=== PATIENT | male | born 1970 | race Caucasian/White ===

== ENCOUNTER 2023-12-23 06:02 | Day surgery (SDC) | payer MEDICAID ==
[2023-12-23] MEDS ORDERED: Bupivacaine HCl 0.5%/Epinephrine 1:200,000/PF 30 ml Vial ONE (06:59)
[2023-12-23] MEDS ORDERED: Lidocaine 2% PF 5 ML VIAL ONE (07:02)
[2023-12-23] MEDS ORDERED: Dexamethasone 4 mg/ml Vial ONE (07:02)
[2023-12-23] MEDS ORDERED: PROPOFOL 20 ML ONE (07:02)
[2023-12-23] MEDS ORDERED: Ondansetron PF 4 MG/2 ML Vial ONE (07:02)
[2023-12-23] MEDS ORDERED: CEFAZOLIN 2 GM VIAL ONE (07:18)
[2023-12-23] MEDS ORDERED: Midazolam HCl 2 mg/2 ml Vial ONE (07:22)
[2023-12-23] MEDS ORDERED: fentaNYL 50 mcg/mL 1 mL Vial ONE ×4 (07:23→08:02)
[2023-12-23] MEDS ORDERED: Scopolamine 1 mg/72 hour Patch ONE (07:23)
[2023-12-23] MEDS ORDERED: Dexamethasone 20 MG/5 ML VIAL ONE (07:47)
== END 2023-12-23 09:30 | disposition home or self-care (01) ==
LOC: CSHSDC 06:02
PROVIDERS: ATTEND Surgery
PROC: 0JH63WZ Insertion of Totally Implantable Vascular Access Device into Chest Subcutaneous Tissue and Fascia, Percutaneous Approach (ICD-10-PCS; principal; 2023-12-23)
DX: C25.9 Malignant neoplasm of pancreas, unspecified (principal); M10.9 Gout, unspecified; F41.9 Anxiety disorder, unspecified; E78.00 Pure hypercholesterolemia, unspecified; I10 Essential (primary) hypertension; F17.200 Nicotine dependence, unspecified, uncomplicated; Z79.899 Other long term (current) drug therapy; Z98.890 Other specified postprocedural states; Z88.5 Allergy status to narcotic agent; Z91.030 Bee allergy status
CPT/HCPCS: 71045; 93005; 93010; A6258; C1788; J1100; J1642; J2001; J2250; J2405; J2704; J3010